=== PATIENT | female | born 1990 | race Caucasian/White ===

== ENCOUNTER 2018-10-24 00:40 | Emergency (ER) | payer BC ==
[~2018-10-24] VITALS: Ht 157.5 cm; Wt 56.0 kg
[2018-10-24 00:44] VITALS: BP 123/69
== END 2018-10-24 01:29 | disposition left against medical advice (07) ==
LOC: ER 00:40
DX: Z53.21 Procedure and treatment not carried out due to patient leaving prior to being seen by health care provider (principal)